=== PATIENT | male | born 1935 | race Caucasian/White ===

== ENCOUNTER → 2020-07-30 | Outpatient (CLI) | payer OTHER ==
[~2020-07-30] MED LIST: ASPIRIN EC81 MG PO; AUGMENTIN 875-1 EACH PO; AZITHROMYCIN500 MG PO; BYSTOLIC10 MG PO; CARAFATE1 GM/10 ML PO; CATAPRES 0.1MG0.1 MG PO; CLOPIDOGREL75 MG PO; COLACE100 MG PO; DESYREL 50 MG T50 MG PO; DEXILANT60 MG PO; DIOVAN40 MG PO; ECOTRIN81 MG PO; FISH OIL 1,0001 EACH PO; GLUCOTROL5 MG PO; IMDUR ER TAB 6060 MG PO; LORTAB 5-325 M1 EACH PO; LOVAZA1 GM PO; NITROSTAT0.4 MG PO; NORVASC2.5 MG PO; PANTOPRAZOLE SO40 MG PO; PROTONIX40 MG PO; RANEXA1000 MG PO; SYMBICORT 80-41 INHA INH; TOPROL XL25 MG PO; VITAMIN B-121000 MCG PO; XANAX1 MG PO; ZOCOR20 MG PO; rolling walker XX
== END ==
LOC: KOH-I 08:53
DX: J98.4 Other disorders of lung (principal)
CPT/HCPCS: 71250

== ENCOUNTER → 2020-08-08 | Outpatient (CLI) | payer OTHER | LOC: KOH-I 13:42 | DX: R29.898 Other symptoms and signs involving the musculoskeletal system (principal); R29.6 Repeated falls; M47.26 Other spondylosis with radiculopathy, lumbar region; M25.78 Osteophyte, vertebrae; M48.07 Spinal stenosis, lumbosacral region | CPT/HCPCS: 72100 ==

== ENCOUNTER → 2020-08-14 | Outpatient (CLI) | payer OTHER | LOC: KOH-I 15:15 | DX: M51.16 Intervertebral disc disorders with radiculopathy, lumbar region (principal); R29.6 Repeated falls; M48.061 Spinal stenosis, lumbar region without neurogenic claudication | CPT/HCPCS: 72131 ==

== ENCOUNTER → 2020-10-10 | Outpatient (CLI) | payer OTHER | LOC: KOH-I 13:06 | DX: C90.00 Multiple myeloma not having achieved remission (principal); E11.22 Type 2 diabetes mellitus with diabetic chronic kidney disease; D63.1 Anemia in chronic kidney disease; N18.9 Chronic kidney disease, unspecified; K21.9 Gastro-esophageal reflux disease without esophagitis; K31.811 Angiodysplasia of stomach and duodenum with bleeding; R31.9 Hematuria, unspecified; R53.1 Weakness; R97.20 Elevated prostate specific antigen [PSA]; R63.0 Anorexia; R10.9 Unspecified abdominal pain | CPT/HCPCS: 74176 ==

== ENCOUNTER → 2021-09-26 | Outpatient (CLI) | payer OTHER | LOC: KOH-I 12:11 | DX: S40.811A Abrasion of right upper arm, initial encounter (principal) | CPT/HCPCS: 73090 ==

== ENCOUNTER → 2021-12-19 | Outpatient (CLI) | payer OTHER | LOC: LAB 10:52 | DX: C61 Malignant neoplasm of prostate (principal) | CPT/HCPCS: 84153 ==

== ENCOUNTER → 2021-12-20 | Outpatient (CLI) | payer OTHER | LOC: US 15:00 | DX: R60.9 Edema, unspecified (principal); M79.606 Pain in leg, unspecified; V89.2XXA Person injured in unspecified motor-vehicle accident, traffic, initial encounter | CPT/HCPCS: 93970 ==